=== PATIENT | male | born 1970 | race Two or more races ===

== ENCOUNTER 2019-02-24 08:30 | Day surgery (SDC) | payer OTHER | END 2019-02-24 12:50 | disposition home or self-care (01) | LOC: AMB-ENDOS 08:30 | DX: D12.0 Benign neoplasm of cecum (principal) ==

== ENCOUNTER 2020-04-19 06:33 | Day surgery (SDC) | payer OTHER | END 2020-04-19 10:25 | disposition home or self-care (01) | LOC: AMB-ENDOS 06:33 | PROVIDERS: ATTEND Surgery | DX: D12.2 Benign neoplasm of ascending colon (principal); K57.30 Diverticulosis of large intestine without perforation or abscess without bleeding ==

== ENCOUNTER 2021-08-16 08:10 | Day surgery (SDC) | payer OTHER | END 2021-08-16 12:08 | disposition home or self-care (01) | LOC: AMB-ENDOS 08:10 → CIR.AMB 13:30 | PROVIDERS: ATTEND Surgery | DX: K57.30 Diverticulosis of large intestine without perforation or abscess without bleeding (principal); E03.9 Hypothyroidism, unspecified ==